=== PATIENT | female | born 1950 | race Caucasian/White ===

== ENCOUNTER 2021-01-13 11:15 | Outpatient (CLI) | payer MEDICARE, OTHER | END 2021-01-13 23:59 | disposition home or self-care (01) | LOC: CFH 11:15 | PROVIDERS: ATTEND Internal Medicine | DX: Z12.31 Encounter for screening mammogram for malignant neoplasm of breast (principal); N95.8 Other specified menopausal and perimenopausal disorders; M81.0 Age-related osteoporosis without current pathological fracture; N63.20 Unspecified lump in the left breast, unspecified quadrant | CPT/HCPCS: 77063; 77067; 77080 ==